=== PATIENT | male | born 1985 | race Caucasian/White ===

== ENCOUNTER 2017-11-06 18:29 | Emergency (ER) | payer SELFPAY ==
--- NOTE | 2017-11-06 21:11 | ED Physician Documentation ---
PD HPI HEENT - Stated complaint Stated Complaint: LT EYE BLURRY/LT FACE NUMBNESS - Chief complaint Chief Complaint: Neuro - History obtained from History obtained from: Patient - History of Present Illness Timing - onset: Today, Last night (felt some watering of left eye last night and this morning. Then progressive weakness of left face through the day. Unable to fully close the eye now.) Timing - duration: Days (1) Timing - details: Gradual onset, Still present Location: Other (left side of face) Associated symptoms: No: Fever, Congestion, Swollen nodes, Headache Similar symptoms before: Has not had sx before Recently seen: Not recently seen Review of Systems Constitutional: denies: Fever, Chills, Myalgias Nose: denies: Rhinorrhea / runny nose, Congestion, Sinus pressure / pain Throat: denies: Dental pain / toothache, Sore throat Cardiac: denies: Chest pain / pressure, Palpitations Respiratory: denies: Dyspnea, Cough Skin: denies: Rash, Lesions Musculoskeletal: denies: Neck pain, Back pain Neurologic: reports: Focal weakness (just left face; none of arms nor legs.) PD PAST MEDICAL HISTORY - Past Medical History Past Medical History: No Cardiovascular: None Respiratory: None Neuro: None Endocrine/Autoimmune: None - Past Surgical History Past Surgical History: No - Present Medications Home Medications: Ambulatory Orders Medication Instructions Recorded Confirmed Acyclovir 800 mg PO 5XD #35 tablet 11/06/17 Dexamethasone [Decadron] 4 mg PO DAILY #7 tablet 11/06/17 - Allergies Allergies/Adverse Reactions: Allergies Allergy/AdvReac Type Severity Reaction Status Date / Time No Known Drug Allergies Allergy Verified 11/06/17 18:51 - Social History Does the pt smoke?: Yes Smoking Status: Current every day smoker Does the pt drink ETOH?: Yes Does the pt have substance abuse?: No - Immunizations Immunizations are current?: Yes PD ED PE NORMAL - Vitals Vital signs reviewed: Yes - General General: Alert and oriented X 3, No acute distress, Well developed/nourished - HEENT HEENT: PERRL, EOMI, Ears normal, Moist mucous membranes, Pharynx benign - Neck Neck: Supple, no meningeal sign, No adenopathy - Cardiac Cardiac: RRR, No murmur - Respiratory Respiratory: Clear bilaterally - Abdomen Abdomen: Soft, Non tender - Back Back: No CVA TTP - Derm Derm: Normal color, Warm and dry, No rash - Neuro Neuro: Alert and oriented X 3, No sensory deficit, Normal speech, Other ( moderate left facial palsy including flattening of forehead msucles. Otherwise normal neuro exam. ). No: features editor 2-12 intact (facial palsy on left and some decreased sensation left back side of tongue, otherwise normal.) Eye Opening: Spontaneous Motor: Obeys Commands Verbal: Oriented GCS Score: 15 - Psych Psych: Normal mood, Normal affect Results - Vitals Vitals: Oxygen O2 Source Room air PD MEDICAL DECISION MAKING - ED course Complexity details: considered differential (clearly left facial palsy with distinct flaccidity of forehead too c/w peripheral nerve. No URI symptoms. No focal infection noted. Anecdotal note is that this is the third bells palsy I have seen in 2 days, so presume some viral cause going around. No recent travel nor exposure to Lyme risk. ), d/w patient - Sepsis Event Vital Signs: Oxygen O2 Source Room air Departure - Departure Disposition: 01 Home, Self Care Clinical Impression: Facial palsy Condition: Stable Record reviewed to determine appropriate education?: Yes Instructions: ED Groom Palsy Prescriptions: Acyclovir 800 mg PO 5XD #35 tablet Dexamethasone [Decadron] 4 mg PO DAILY #7 tablet Comments: The facial nerve palsy/weakness is thought to be from inflammation of the nerve and commonly from a viral illness. We will treated with steroid anti- inflammatory daily for the next 7 days. Also an antiviral medication for the next week as well. Use some eye moisturizer or ointment to keep it from drying. He will likely want to taper closed or such at night so does not stay partly open and dry out. The symptoms typically increase in peak in severity at about 3-5 days and then commonly take about 4-6 weeks to resolve. The vast majority do resolve. Follow-up with your primary care in about a week or so for recheck. Discharge Date/Time: 11/06/17 22:00
[2017-11-06] MEDS ORDERED: ACYCLOVIR 200 MG CAPSULE PO STA (21:47)
[2017-11-06] MEDS ORDERED: DEXAMETHASONE 10 MG/ML VIAL PO STA (21:47)
[2017-11-06 21:51] VITALS: BP 118/74
== END 2017-11-06 22:00 | disposition home or self-care (01) ==
LOC: ED 18:29
DX: G51.0 Bell's palsy (principal); F17.200 Nicotine dependence, unspecified, uncomplicated
CPT/HCPCS: 99283; A9270

== ENCOUNTER 2021-04-20 21:36 | Outpatient (CLI) | payer SELFPAY | END 2021-04-20 21:37 | disposition EMS.NT | LOC: EMS 21:36 | DX: Z04.1 Encounter for examination and observation following transport accident (principal) ==